=== PATIENT | male | born 1965 | race Two or more races ===

== ENCOUNTER → 2016-05-13 | Outpatient (CLI) | payer MEDICARE, MEDICAID ==
[2016-03-02 12:30] VITALS: BP 141/89
[~2016-05-13] MED LIST: ALLO100T PO; CALC0.25 PO; CARV25TA2 PO; CARV6.25 PO; COLC0.6T34 PO; DEXL60CA PO; FURO20TA3 PO; HYDR-2666 PO; HYDR-2868 PO; LISI40TA PO; MAGN400T3 PO; METO50TA2 PO; MYCO250C PO; SIMV10TA3 PO; TACR1CAP4 PO; ZOLP5TAB PO
--- NOTE | 2016-05-13 11:33 | RAD ---
Exam performed: CT scan of the head without contrast. Date of Service: 05/13/16. Comparison: None available. Clinical History: Recurrent episodes of insomnia and palpitation with headache since last October. Technique: Helical acquisitions are obtained from the foramen magnum to the vertex without intravenous administration of contrast. Findings: The ventricles are midline without evidence of dilatation. Normal og-white differentiation is maintained. There is no extra axial fluid collection, intraparenchymal hemorrhage or mass lesion. The visualized portions of the orbits, paranasal sinuses and the mastoid air cells appear clear. The calvarium is intact. Impression: 1. No acute intracranial process detected. PQRS Compliance Statement: One or more of the following individualized dose reduction techniques were utilized for this examination: 1. Automated exposure control 2. Adjustment of the mA and/or kV according to patient size 3. Use of iterative reconstruction technique
== END | disposition home or self-care (01) ==
LOC: CT 13:29
PROVIDERS: ATTEND Internal Medicine
DX: R51 Headache (principal)
CPT/HCPCS: 70450

== ENCOUNTER → 2018-03-29 | Outpatient (CLI) | payer MEDICARE, MEDICAID ==
[2016-03-02 12:30] VITALS: BP 141/89
[~2018-03-29] MED LIST changes: -DEXL60CA PO; +DEXL60CA2 PO; -HYDR-2666 PO; +HYDR-2761 PO; +LISI-130 PO; -LISI40TA PO; -METO50TA2 PO; +METO50TA6 PO
--- NOTE | 2018-03-29 18:39 | RAD ---
CT scan of the abdomen and pelvis without contrast 03/29/2018 CLINICAL HISTORY: History of renal cell carcinoma. TECHNIQUE: Unenhanced, contiguous, 5 mm axial sections were obtained through the abdomen and pelvis. One or more of the following individualized dose reduction techniques were utilized for this study: 1. Automated exposure control. 2. Adjustment of the mA and/or kV according to patient size. 3. Use of iterative reconstruction technique. FINDINGS: Comparison study is dated 08/17/2015. Images through the lung bases are within normal limits. The liver parenchyma has a decreased attenuation consistent with mild fatty infiltration. The spleen, pancreas, and adrenal glands are within normal limits. The patient is post right nephrectomy. Marked atrophy of the left kidney is seen. Calcifications are seen scattered throughout the left kidney, unchanged. A 1.4 cm low-attenuation lesion is seen involving the midpole the left kidney which likely represents a cyst. It has not significantly changed. No recurrent/residual mass is seen within the right renal fossa. Atherosclerotic calcification of the abdominal aorta and its branches is seen. The abdominal aorta tapers normally. The gallbladder is well-distended. No free fluid or free air is within the abdomen. There is no evidence of bowel obstruction. The appendix is well-visualized and is within normal limits. A 1.7 cm mesenteric lymph node is seen within the right lower quadrant of the abdomen, unchanged. Small retroperitoneal lymph nodes are seen adjacent to the abdominal aorta, unchanged. A transplanted kidney is again seen within the right superior pelvis, unchanged. No focal abnormality is seen. Images through the pelvis demonstrate the urinary bladder distended with urine. No free fluid is seen. No pelvic or inguinal lymphadenopathy is noted. Very mild S-shaped curvature of the thoracolumbar spine is seen. Degenerative changes are seen involving lower thoracic and throughout the lumbar spine and both hips. IMPRESSION: No acute abnormality is seen. Electronically signed by: Ulysses Juarez MD (03/29/2018 6:35 PM) [id number]
== END | disposition home or self-care (01) ==
LOC: CT 13:31
PROVIDERS: ATTEND Internal Medicine
DX: N26.1 Atrophy of kidney (terminal) (principal); N32.89 Other specified disorders of bladder; I70.0 Atherosclerosis of aorta; N28.89 Other specified disorders of kidney and ureter; K76.0 Fatty (change of) liver, not elsewhere classified; Z85.528 Personal history of other malignant neoplasm of kidney
CPT/HCPCS: 74176

== ENCOUNTER 2019-08-24 22:59 | Emergency (ER) | payer MEDICARE, MEDICAID ==
[~2019-08-24] VITALS: Ht 175.3 cm; Wt 93.2 kg
[~2019-08-24 22:59] MED LIST changes: -MAGN400T3 PO; +MAGN400T5 PO; +SIMV10TA15 PO; -SIMV10TA3 PO; -TACR1CAP4 PO; +TACR1CAP5 PO
[2019-08-24] MEDS ORDERED: FAMOTIDINE 20 MG/2 ML VIAL IVP ONE (23:15)
[2019-08-24] MEDS ORDERED: methylPREDNISolone SOD SUCC PF 125 MG/2 ML VIAL. IV ONE (23:15)
[2019-08-24] MEDS ORDERED: diphenhydrAMINE 50 MG/ML VIAL IV ONE (23:15)
[2019-08-24 23:47] LABS: BASO # 0.1 x10^3/uL (0.0-0.2); BASO % 1 % (0-3); EOS # 0.3 x10^3/uL (0.0-0.7); EOS % 3 % (0-3); HEMATOCRIT 43.1 % (39.0-53.0); HEMOGLOBIN 15.1 g/dL (13.0-17.5); LYMPH # 1.6 x10^3/uL (1.0-4.8); LYMPH % 16 % (24-48); MEAN CORPUSCULAR HEMOGLOBIN 32 pg (25-35); MEAN CORPUSCULAR HGB CONC 35 g/dL (31-37); MEAN CORPUSCULAR VOLUME 92 fL (79-100); MONO # 0.9 x10^3/uL (0.0-1.1); MONO % 8 % (0-9); NEUT # 7.3 x10^3/uL (1.8-7.7); NEUT % 72 % (31-73); PLATELET COUNT 180 x10^3/uL (140-400); RED BLOOD COUNT 4.68 x10^6/uL (4.30-5.70); RED CELL DISTRIBUTION WIDTH 13.7 % (11.5-14.5); WHITE BLOOD COUNT 10.2 x10^3/uL (4.0-11.0)
[2019-08-24 23:54] LABS: CALCIUM 8.8 mg/dL (8.5-10.1); CREATININE 1.6 mg/dL (0.7-1.3); GFR 45.3; POTASSIUM 4.2 mmol/L (3.5-5.1)
[2019-08-25] LABS: ALBUMIN 3.7 g/dL (3.4-5.0); ALBUMIN/GLOBULIN RATIO 0.9 (1.0-1.7); MAGNESIUM 1.5 mg/dL (1.8-2.4); TOTAL BILIRUBIN 0.3 mg/dL (0.2-1.0); TOTAL PROTEIN 7.7 g/dL (6.4-8.2)
--- NOTE | 2019-08-25 00:07 | RAD ---
STUDY: CT head without contrast INDICATION: Left facial numbness. COMPARISON: 05/13/2016 TECHNIQUE: Axial CT imaging through the head without the use of intravenous contrast. Sagittal and coronal reformats were obtained. One or more of the following individualized dose reduction techniques were utilized for this examination: 1. Automated exposure control 2. Adjustment of the mA and/or kV according to patient size 3. Use of iterative reconstruction technique. FINDINGS: No acute intracranial hemorrhage. No CT evidence for an acute cortical infarction. No mass effect, midline shift or hydrocephalus. Small regions of apparent hypoattenuation involving the bihemispheric subcortical white matter is nonspecific but most frequently seen in the setting of mild chronic microvascular ischemic change. The visualized parotid glands are unremarkable as are the orbits. Intact calvarium. Unremarkable skull base. Anterior positioning of the mandibular condyles relative to the mandibular fossa is unchanged from the comparison. 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 IMPRESSION: 1. No acute intracranial abnormality by CT. 2. Chronic observations as detailed above. Electronically signed by: BERNABE GATES MD (08/25/2019 12:04 AM) [id number]
--- NOTE | 2019-08-25 01:50 | PHYS DOC ---
Past Medical History Past Medical History: High Cholesterol, Heart Disease, Hypertension, Renal Disease Past Surgical History: Other Additional Past Surgical Histo: KIDNEY TRANSPLANT, Fistula placement/removal, dialysus chest port place/rem Smoking Status: Former Smoker Alcohol Use: None Drug Use: None General Adult EDM: Chief Complaint: ALLERGIC REACTION HPI: HPI: 53-year-old male past medical history significant for CAD, hypertension, hyperlipidemia and history of right renal transplant on immunosuppressants, presents to the ED with c/o tingling and decreased sensation in the entire left side of his face with a fullness sensation to the skin. Patient states he had t he same reaction happened after eating selfish approximately 15 years ago and when he had hyperkalemia in 2002. Patient states he ate salmon tonight and his symptoms started a few hours afterwards. Patient is concerned he is having an allergic reaction. Reports difficulty closing his left eye. PMD is . Follows with KAREN Frausto ROS: Patient denies any associated fever, chills, headache, neck stiffness, nausea, vomiting, cough, dyspnea, chest pain or pressure, earache, sore throat, cough, neck pain, rash, blurry vision, neurologic deficits. Review of Systems: Review of Systems: Constitutional: Denies fever or chills. [] Eyes: Denies change in visual acuity. [] HENT: Denies nasal congestion or sore throat. [] Respiratory: Denies cough or shortness of breath. [] Cardiovascular: Denies chest pain or edema. [] GI: Denies abdominal pain, nausea, vomiting, bloody stools or diarrhea. [] : Denies dysuria. [] Musculoskeletal: Denies back pain or joint pain. [] Integument: Denies rash. [] Neurologic: Denies headache, focal weakness or sensory changes. [] Endocrine: Denies polyuria or polydipsia. [] Lymphatic: Denies swollen glands. [] Psychiatric: Denies depression or anxiety. [] Heart Score: Risk Factors: Risk Factors: DM, Current or recent (<one month) smoker, HTN, HLP, family history of CAD, obesity. Risk Scores: Score 0 - 3: 2.5% MACE over next 6 weeks - Discharge Home Score 4 - 6: 20.3% MACE over next 6 weeks - Admit for Clinical Observation Score 7 - 10: 72.7% MACE over next 6 weeks - Early Invasive Strategies Current Medications: Current Medications Medications (Trade) Dose Ordered Sig/Bernice Start Time Stop Time Status Last Admin Dose Admin Diphenhydramine HCl (Benadryl) 25 mg 1X ONCE 08/24/19 23:15 08/24/19 23:30 DC Famotidine (Pepcid Vial) 20 mg 1X ONCE 08/24/19 23:15 08/24/19 23:30 DC Methylprednisolone Sodium Succinate (SOLU-Medrol 125MG VIAL) 125 mg 1X ONCE 08/24/19 23:15 08/24/19 23:30 DC Allergies: Allergies: Allergies Coded Allergies Type Severity Reaction Last Updated Verified shellfish derived Allergy Severe 11/17/15 Yes codeine Allergy Intermediate PT HAS TOLERATED LORTAB 05/15/15 Yes iodine Allergy Intermediate Hives 05/15/15 Yes Physical Exam: PE: Constitutional: Well developed, well nourished, no acute distress, non-toxic appearance. [] HENT: Normocephalic, atraumatic, bilateral external ears normal, oropharynx moist, no oral exudates, nose normal, trigeminal nerve sensation in all 3 dermatomes equal bilaterally, not fully closing left eye, cannot appreciate obvious left facial droop (reports right lip droop is chronic), right ear w/cerumen impaction, left ear with erythematous external canal, no meningimus Eyes: PERRLA, EOMI, conjunctiva normal, no discharge Neck: Normal range of motion, no tenderness, supple, no stridor. [] Cardiovascular:Heart rate regular rhythm, no murmur [] Lungs & Thorax: Bilateral breath sounds clear to auscultation [] Abdomen: Bowel sounds normal, soft, no tenderness, no masses, no pulsatile masses. [] Skin: Warm, dry, no erythema, no rash. [] Back: No tenderness, no CVA tenderness. [] Extremities: No tenderness, no cyanosis, no clubbing, ROM intact, no edema. [] Neurologic: Alert and oriented X 3, normal motor function, normal sensory function, no focal deficits noted. [] Psychologic: Affect normal, judgement normal, mood normal. [] Current Patient Data: Labs: Laboratory Tests Test 08/24/19 23:35 White Blood Count 10.2 x10^3/uL (4.0-11.0) Red Blood Count 4.68 x10^6/uL (4.30-5.70) Hemoglobin 15.1 g/dL (13.0-17.5) Hematocrit 43.1 % (39.0-53.0) Mean Corpuscular Volume 92 fL (79-100) Mean Corpuscular Hemoglobin 32 pg (25-35) Mean Corpuscular Hemoglobin Concent 35 g/dL (31-37) Red Cell Distribution Width 13.7 % (11.5-14.5) Platelet Count 180 x10^3/uL (140-400) Neutrophils (%) (Auto) 72 % (31-73) Lymphocytes (%) (Auto) 16 % (24-48) L Monocytes (%) (Auto) 8 % (0-9) Eosinophils (%) (Auto) 3 % (0-3) Basophils (%) (Auto) 1 % (0-3) Neutrophils # (Auto) 7.3 x10^3/uL (1.8-7.7) Lymphocytes # (Auto) 1.6 x10^3/uL (1.0-4.8) Monocytes # (Auto) 0.9 x10^3/uL (0.0-1.1) Eosinophils # (Auto) 0.3 x10^3/uL (0.0-0.7) Basophils # (Auto) 0.1 x10^3/uL (0.0-0.2) Sodium Level 136 mmol/L (136-145) Potassium Level 4.2 mmol/L (3.5-5.1) Chloride Level 101 mmol/L (98-107) Carbon Dioxide Level 23 mmol/L (21-32) Anion Gap 12 (6-14) Blood Urea Nitrogen 28 mg/dL (8-26) H Creatinine 1.6 mg/dL (0.7-1.3) H Estimated GFR (Cockcroft-Gault) 45.3 BUN/Creatinine Ratio 18 (6-20) Glucose Level 129 mg/dL (70-99) H Calcium Level 8.8 mg/dL (8.5-10.1) Magnesium Level 1.5 mg/dL (1.8-2.4) L Total Bilirubin 0.3 mg/dL (0.2-1.0) Aspartate Amino Transferase (AST) 17 U/L (15-37) Alanine Aminotransferase (ALT) 41 U/L (16-63) Alkaline Phosphatase 108 U/L (46-116) Total Protein 7.7 g/dL (6.4-8.2) Albumin 3.7 g/dL (3.4-5.0) Albumin/Globulin Ratio 0.9 (1.0-1.7) L Laboratory Tests 08/24/19 23:35 Laboratory Tests 08/24/19 23:35 EKG: EKG: [] Radiology/Procedures: Radiology/Procedures: IMAGING REPORT Signed PATIENT: ELZBIETA ALVARADO ACCOUNT: [id number] : 1965 LOCATION: ER AGE: 53 SEX: M EXAM STATUS: REG ER ORD. PHYSICIAN: VIOLETTE MICHAEL DO REASON: left facial nuumbness PROCEDURE: CT HEAD WO CONTRAST STUDY: CT head without contrast INDICATION: Left facial numbness. COMPARISON: 05/13/2016 TECHNIQUE: Axial CT imaging through the head without the use of intravenous contrast. Sagittal and coronal reformats were obtained. One or more of the following individualized dose reduction techniques were utilized for this examination: 1. Automated exposure control 2. Adjustment of the mA and/or kV according to patient size 3. Use of iterative reconstruction technique. FINDINGS: No acute intracranial hemorrhage. No CT evidence for an acute cortical infarction. No mass effect, midline shift or hydrocephalus. Small regions of apparent hypoattenuation involving the bihemispheric subcortical white matter is nonspecific but most frequently seen in the setting of mild chronic microvascular ischemic change. The visualized parotid glands are unremarkable as are the orbits. Intact calvarium. Unremarkable skull base. Anterior positioning of the mandibular condyles relative to the mandibular fossa is unchanged from the comparison. 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 IMPRESSION: 1. No acute intracranial abnormality by CT. 2. Chronic observations as detailed above. Electronically signed by: BERNABE GATES MD (08/25/2019 12:04 AM) [id number] DICTATED and SIGNED BY: BERNABE GATES MD DATE: 08/25/19 0004 Impression: Concern for left bells palsys with left-sided otitis media. Labs show chronic kidney disease, roughly at baseline-last comparison is 2015. Pt observed for 4 hours in ed with worsening left facial numbness/droop and difficulties closing left eye. Was started on high-dose steroids, no antivirals given renal insufficiency. Will also be started on Ciprodex. Encourage ophthalmology outpatient follow-up. Also encourage PMD follow-up in 24 to 48 hours for reevaluation. Low suspicion for life-threatening process including stroke. All of patient's questions were answered and he was stable at time of discharge. Course & Med Decision Making: Course & Med Decision Making Pertinent Labs and Imaging studies reviewed. (See chart for details) [] Dragon Disclaimer: Dragon Disclaimer: This electronic medical record was generated, in whole or in part, using a voice recognition dictation system. Departure Departure Impression: Primary Impression: Youssef's palsy Additional Impressions: Otitis externa CKD (chronic kidney disease) Disposition: HOME, SELF-CARE Condition: STABLE Referrals: BARB MARQUEZ MD (PCP) Patient Instructions: Youssef's Palsy, Chronic Renal Insufficiency, Otitis Externa Scripts Ciprofloxacin Hcl/Dexameth (CIPRODEX OTIC SUSPENSION) 7.5 Ml Drops.susp 4 DROP EACH EAR BID, #1 BOTTLE Prov: VIOLETTE MICHAEL DO 08/25/19 Dextran 70/Hypromellose (ARTIFICIAL TEARS EYE DROPS) 15 Ml Drops 1 DROP EACHEYE QID, #30 ML 0 Refills Prov: VIOLETTE MICHAEL DO 08/25/19 Prednisone (PREDNISONE) 20 Mg Tablet 3 TAB PO DAILY for 6 Days, #18 TAB Prov: VIOLETTE MICHAEL DO 08/25/19 Justicifation of Admission Dx: Justifications for Admission: Justification of Admission Dx: N/A VIOLETTE MICHAEL DO Aug 25, 2019 01:50
[2019-08-25] MEDS ORDERED: PRED20TA PO (03:11)
[2019-08-25] MEDS ORDERED: DEXT15DR5 EACHEYE (03:11)
[2019-08-25] MEDS ORDERED: CIPR7.5D EACH EAR (03:11)
[2019-08-25] MEDS ORDERED: predniSONE 20 MG TABLET PO ONE (03:15)
[2019-08-25 03:27] VITALS: BP 130/84
== END 2019-08-25 03:27 | disposition home or self-care (01) ==
LOC: ER 22:59
DX: G51.0 Bell's palsy (principal); H60.92 Unspecified otitis externa, left ear; I13.10 Hypertensive heart and chronic kidney disease without heart failure, with stage 1 through stage 4 chronic kidney disease, or unspecified chronic kidney disease; N18.9 Chronic kidney disease, unspecified; E78.00 Pure hypercholesterolemia, unspecified; Z87.891 Personal history of nicotine dependence; Z94.0 Kidney transplant status; Z88.5 Allergy status to narcotic agent; Z91.013 Allergy to seafood; Z88.8 Allergy status to other drugs, medicaments and biological substances
CPT/HCPCS: 36415; 70450; 80053; 83735; 85025; 99284; J7512

== ENCOUNTER → 2021-05-17 | Outpatient (CLI) | payer MEDICARE, MEDICAID ==
[~2021-05-17] MED LIST changes: +CIPR7.5D EACH EAR; +DEXT15DR5 EACHEYE; +MAGN400T48 PO; -MAGN400T5 PO; +PRED20TA PO
--- NOTE | 2021-05-17 16:45 | RAD ---
XR LT WRIST 2 VIEWS DATE: 05/17/2021 3:50 PM INDICATION: PAIN. STATUS-POST FALL. COMPARISON: None. FINDINGS: Bones: There is no evidence of acute fracture or dislocation. Joints: The joint spaces are normal. Miscellaneous: Surgical clips along the distal forearm. Atherosclerotic vascular calcifications. IMPRESSION: No evidence of acute fracture. Electronically signed by: Naresh Santos MD (05/17/2021 4:42 PM) [id number]
== END ==
LOC: RAD 15:26
PROVIDERS: ATTEND Internal Medicine
DX: M25.532 Pain in left wrist (principal)
CPT/HCPCS: 73100